=== PATIENT | male | born 1990 | race Two or more races ===

== ENCOUNTER 2019-06-05 11:45 | Emergency (ER) | payer BC | END 2019-06-05 14:24 | disposition home or self-care (01) | LOC: FTE 11:45 | DX: S99.911A Unspecified injury of right ankle, initial encounter (principal); X50.1XXA Overexertion from prolonged static or awkward postures, initial encounter; Y92.9 Unspecified place or not applicable | CPT/HCPCS: 73610; 73610-RT; 73630; 99283-25 ==